=== PATIENT | female | born 1990 | race Two or more races ===

== ENCOUNTER 2018-12-29 22:13 | Emergency (ER) | payer MEDICAID ==
[~2018-12-29] VITALS: Ht 157.5 cm; Wt 130.4 kg
[2018-12-29] MEDS ORDERED: cloNIDine HCL 0.1 MG TAB PO ONE (23:00)
[2018-12-30 01:20] LABS: Albumin 3.7 g/dL (3.4-5.0); BUN/Creatinine Ratio 16.7; Calcium 8.2 mg/dL (8.5-10.1); Potassium 3.3 mmol/L (3.5-5.1)
[2018-12-30 01:23] LABS: Bilirubin, Total 0.6 mg/dL (0.2-1.0); Total Protein 8.2 g/dL (6.4-8.2)
[2018-12-30 01:54] LABS: Basophils # (auto) 0.1 uL; Basophils % (auto) 0.6 % (0.0-2.0); Eosinophils # (auto) 0 uL; Eosinophils % (auto) 0.5 % (0.0-7.0); Hematocrit 41.7 % (36.0-46.0); Lymphocytes # (auto) 2.1 uL; Lymphocytes % (auto) 20.9 % (10.0-50.0); Mean Corpuscular Hemoglobin 28.9 pg (28.0-32.0); Mean Corpuscular Hgb Conc. 33.6 g/dL (32.0-36.0); Mean Corpuscular Volume 86.2 fL (80.0-100.0); Monocytes # (auto) 0.6 uL; Monocytes % (auto) 5.8 % (0.0-12.0); Neutrophils # (auto) 7.3 uL; Neutrophils % (auto) 72.2 % (37.0-80.0); Nucleated Red Blood Cells % 0.1 %; Platelet Count (auto) 277 10^3/uL (140-450); Red Blood Cells 4.84 10^6/uL (4.0-5.20); Red Cell Distribution Width 14.5 % (11.8-14.3); White Blood Cell 10.1 10^3/uL (4.4-10.8)
[2018-12-30] MEDS ORDERED: cloNIDine HCL 0.1 MG TAB PO ONE ×2 (09:00→09:15)
[2018-12-30] MEDS ORDERED: POTASSIUM EFFERVESENT TAB 25 MEQ PO ONE (11:00)
[2018-12-30 11:04] VITALS: BP 152/82
== END 2018-12-30 11:04 | disposition home or self-care (01) ==
LOC: ER 22:18
DX: I10 Essential (primary) hypertension (principal)
CPT/HCPCS: 36415; 70450; 80053; 85025

== ENCOUNTER 2020-08-13 10:45 | Emergency (ER) | payer MEDICAID ==
[~2020-08-13] VITALS: Ht 157.5 cm; Wt 130.2 kg
[2020-08-13] MEDS ORDERED: cloNIDine HCL 0.1 MG TAB PO ONE (11:00)
[2020-08-13 12:37] VITALS: BP 163/90
== END 2020-08-13 12:50 | disposition home or self-care (01) ==
LOC: ER 10:45
DX: H66.93 Otitis media, unspecified, bilateral (principal); I10 Essential (primary) hypertension; E66.01 Morbid (severe) obesity due to excess calories; F17.210 Nicotine dependence, cigarettes, uncomplicated; F12.10 Cannabis abuse, uncomplicated; Z68.43 Body mass index [BMI] 50.0-59.9, adult; Z91.14 Patient's other noncompliance with medication regimen

== ENCOUNTER 2023-10-22 14:04 | Inpatient (IN) | payer MEDICAID ==
[~2023-10-22] VITALS: Ht 157.5 cm; Wt 134.4 kg
[2023-10-22] MEDS: cloNIDine HCL 0.1 MG TAB PO ONE (14:31)
[2023-10-22 14:35] VITALS: PULSE 107; RESP 14; O2SAT 98
[2023-10-22 19:47] LABS: Basophils # (auto) 0.1 10 ^3/uL (0-0.2); Basophils % (auto) 0.9 % (0.0-2.0); Chloride 103 mmol/L (98-107); Eosinophils # (auto) 0 10 ^3/uL (0-0.8); Eosinophils % (auto) 0.3 % (0.0-7.0); Hematocrit 43.8 % (36.0-46.0); Hemoglobin 14.9 g/dL (12.2-16.2); Lymphocytes # (auto) 2.1 10 ^3/uL (0.4-5.4); Lymphocytes % (auto) 18.5 % (10.0-50.0); Mean Corpuscular Hemoglobin 31.5 pg (28.0-32.0); Mean Corpuscular Volume 92.5 fL (80.0-100.0); Monocytes # (auto) 0.7 10 ^3/uL (0-1.3); Neutrophils # (auto) 8.6 10 ^3/uL (1.6-8.6); Neutrophils % (auto) 74.3 % (37.0-80.0); Platelet Count (auto) 299 10^3/uL (140-450); Potassium 3.8 mmol/L (3.5-5.1); Red Blood Cells 4.73 10^6/uL (4.0-5.20); Red Cell Distribution Width 13.5 % (11.8-14.3); Sodium 137 mmol/L (136-145); White Blood Cell 11.6 10^3/uL (4.4-10.8)
[2023-10-22 19:48] LABS: Anion Gap 10 (5-15); Carbon Dioxide 24 mmol/L (20-30)
[2023-10-22 19:49] LABS: Calcium 8.7 mg/dL (8.7-10.4)
[2023-10-22 19:53] LABS: Glucose 90 mg/dL (74-106)
[2023-10-22 19:54] LABS: BUN/Creatinine Ratio 11.6 (10.0-20.0); Blood Urea Nitrogen 8 mg/dL (9-23)
[2023-10-22] MEDS: LABETALOL HCL 20 MG/4 ML VL IV ONE (23:13)
[2023-10-23 07:43] VITALS: PULSE 87; RESP 19; O2SAT 99
[2023-10-23] MEDS ORDERED: HYDROmorphone HCL 2 MG/ML VL/or syr IV PRN (10:15)
[2023-10-23] MEDS ORDERED: ONDANSETRON HCL 4 MG/2 ML VIAL IV PRN (10:15)
[2023-10-23] MEDS ORDERED: DOCUSATE SOD 100 MG CAP PO PRN (10:15)
[2023-10-23] MEDS: LACTATED RINGER'S 1,000 ML IV ONE (10:30)
[2023-10-23] MEDS: amLODIPine BESYLATE 5 MG TAB PO SCH (10:30)
[2023-10-23] MEDS: ACETAMINOPHEN 325 MG TAB PO PRN (11:28)
[2023-10-23] MEDS: LABETALOL HCL 20 MG/4 ML VL IV PRN (11:29)
[2023-10-23] MEDS: SODIUM CHLOR 0.9% PF (SALINE LOCK) 10ML VIAL/SYR IV SCH (14:06)
[2023-10-23 14:10] LABS: Amphetamine Screen, Urine Neg (NEGATIVE); Barbiturate Scree,Urine Neg (NEGATIVE); Benzodiazephine Screen, Urine Neg (NEGATIVE); Cannabinoid Screen, Urine Pos (NEGATIVE); Cocaine Screen, Urine Neg (NEGATIVE); Opiate Scree,Urine Neg (NEGATIVE); Phencyclidine Screen, Urine Neg (NEGATIVE)
[2023-10-23 19:30] VITALS: PULSE 80; RESP 12; O2SAT 96
[2023-10-23] MEDS: HYDROcodone-ACET 5/325MG TAB PO PRN (20:45)
[2023-10-23 22:52] VITALS: BP 219/129; PULSE 89; RESP 19; TEMP 97.8; O2SAT 97
[2023-10-24] VITALS (13 sets, daily range): BP systolic 147–179; BP diastolic 78–106; PULSE 71–91; RESP 16–20; TEMP 98–98.5; O2SAT 95–98
[2023-10-24] MEDS: hydrALAZINE HCL 20 MG/ML VL IV ONE (01:00)
[2023-10-24 06:48] LABS: Basophils # (auto) 0.1 10 ^3/uL (0-0.2); Basophils % (auto) 0.7 % (0.0-2.0); Eosinophils # (auto) 0 10 ^3/uL (0-0.8); Eosinophils % (auto) 0.6 % (0.0-7.0); Hematocrit 39.1 % (36.0-46.0); Hemoglobin 13.3 g/dL (12.2-16.2); Lymphocytes # (auto) 1.7 10 ^3/uL (0.4-5.4); Lymphocytes % (auto) 20.5 % (10.0-50.0); Mean Corpuscular Hemoglobin 31.2 pg (28.0-32.0); Mean Corpuscular Volume 91.9 fL (80.0-100.0); Monocytes # (auto) 0.6 10 ^3/uL (0-1.3); Neutrophils # (auto) 5.9 10 ^3/uL (1.6-8.6); Neutrophils % (auto) 71.2 % (37.0-80.0); Platelet Count (auto) 254 10^3/uL (140-450); Red Blood Cells 4.25 10^6/uL (4.0-5.20); Red Cell Distribution Width 13.4 % (11.8-14.3); White Blood Cell 8.2 10^3/uL (4.4-10.8)
[2023-10-24 06:56] LABS: Alanine Aminotransferase 21 U/L (7-40); Albumin 4.2 g/dL (3.2-4.8); Alkaline Phosphatase 57 U/L (46-116); Anion Gap 7 (5-15); Aspartate Aminotransferase 20 U/L (13-40); BUN/Creatinine Ratio 10.5 (10.0-20.0); Blood Urea Nitrogen 6 mg/dL (9-23); Calcium 8.5 mg/dL (8.7-10.4); Carbon Dioxide 24 mmol/L (20-30); Chloride 106 mmol/L (98-107); Glucose 103 mg/dL (74-106); Potassium 3.1 mmol/L (3.5-5.1); Sodium 137 mmol/L (136-145)
[2023-10-24 06:57] LABS: Bilirubin, Total 0.8 mg/dL (0.2-1.0); Total Protein 7.2 g/dL (5.7-8.2)
[2023-10-24] MEDS: POTASSIUM CHL 20 Meq TABLET PO ONE (08:23)
[2023-10-24] MEDS: ENOXAPARIN SOD 40 MG/0.4 ML SYRINGE SC SCH (09:46)
[2023-10-24] MEDS ORDERED: LISI-275 PO (13:39)
[2023-10-24] MEDS ORDERED: ACET-1882 PO (13:39)
[2023-10-24] MEDS: LISINOPRIL 5 MG TAB PO ONE (16:35)
[2023-10-24 18:11] LABS: Anion Gap 5 (5-15); Carbon Dioxide 26 mmol/L (20-30); Chloride 106 mmol/L (98-107); Potassium 3.7 mmol/L (3.5-5.1); Sodium 137 mmol/L (136-145)
[2023-10-24 18:16] LABS: BUN/Creatinine Ratio 12.7 (10.0-20.0); Blood Urea Nitrogen 9 mg/dL (9-23); Glucose 91 mg/dL (74-106); Magnesium 1.9 mg/dL (1.6-2.6)
[2023-10-24] MEDS: METHOCARBAMOL 500 MG TAB PO SCH (21:26)
[2023-10-25] VITALS (7 sets, daily range): BP systolic 146–181; BP diastolic 85–111; PULSE 73–88; RESP 17–20; TEMP 36.4; O2SAT 94–98
[2023-10-25 05:45] LABS: Basophils # (auto) 0.1 10 ^3/uL (0-0.2); Basophils % (auto) 0.8 % (0.0-2.0); Eosinophils # (auto) 0.1 10 ^3/uL (0-0.8); Eosinophils % (auto) 1.9 % (0.0-7.0); Hematocrit 36.5 % (36.0-46.0); Hemoglobin 12.6 g/dL (12.2-16.2); Lymphocytes # (auto) 2.2 10 ^3/uL (0.4-5.4); Lymphocytes % (auto) 31.3 % (10.0-50.0); Mean Corpuscular Hgb Conc. 34.5 g/dL (32.0-36.0); Mean Corpuscular Volume 92.9 fL (80.0-100.0); Monocytes # (auto) 0.5 10 ^3/uL (0-1.3); Monocytes % (auto) 7.2 % (0.0-12.0); Neutrophils % (auto) 58.8 % (37.0-80.0); Platelet Count (auto) 242 10^3/uL (140-450); Red Blood Cells 3.93 10^6/uL (4.0-5.20); Red Cell Distribution Width 13.3 % (11.8-14.3); White Blood Cell 6.9 10^3/uL (4.4-10.8)
[2023-10-25 06:09] LABS: Alanine Aminotransferase 31 U/L (7-40); Albumin 3.8 g/dL (3.2-4.8); Alkaline Phosphatase 54 U/L (46-116); Anion Gap 6 (5-15); Aspartate Aminotransferase 32 U/L (13-40); BUN/Creatinine Ratio 11.1 (10.0-20.0); Blood Urea Nitrogen 7 mg/dL (9-23); Calcium 8.6 mg/dL (8.7-10.4); Carbon Dioxide 25 mmol/L (20-30); Chloride 106 mmol/L (98-107); Glucose 89 mg/dL (74-106); Potassium 3.3 mmol/L (3.5-5.1); Sodium 137 mmol/L (136-145)
[2023-10-25 06:10] LABS: Bilirubin, Total 0.7 mg/dL (0.2-1.0); Total Protein 6.7 g/dL (5.7-8.2)
[2023-10-25] MEDS: LISINOPRIL 5 MG TAB PO SCH (09:13)
[2023-10-25] MEDS ORDERED: LISI-275 PO (10:44)
[2023-10-25] MEDS: hydrALAZINE HCL 20 MG/ML VL IV PRN (12:00)
[2023-10-25] MEDS ORDERED: LISINOPRIL 20 MG TAB PO SCH (14:00)
[2023-10-25] MEDS ORDERED: amLODIPine BESYLATE 5 MG TAB PO ONE (14:00)
[2023-10-25] MEDS: LISINOPRIL 20 MG TAB PO SCH (14:15)
[2023-10-25] MEDS ORDERED: LISI20TA56 PO (18:07)
[2023-10-26] MEDS ORDERED: amLODIPine BESYLATE 5 MG TAB PO SCH (10:00)
== END 2023-10-25 17:20 | disposition home or self-care (01) | DRG 199 ==
LOC: ER 14:04 → TELE 10-23 10:12 → TELE-CENTR 10-23 22:52
PROVIDERS: ADMIT Internal Medicine Pulmonary Disease; ATTEND Internal Medicine Pulmonary Disease
DX: I16.0 Hypertensive urgency (principal); R16.0 Hepatomegaly, not elsewhere classified; Z68.43 Body mass index [BMI] 50.0-59.9, adult; E66.01 Morbid (severe) obesity due to excess calories; F17.210 Nicotine dependence, cigarettes, uncomplicated; F41.9 Anxiety disorder, unspecified; I10 Essential (primary) hypertension; M47.816 Spondylosis without myelopathy or radiculopathy, lumbar region; M51.36 Other intervertebral disc degeneration, lumbar region; F12.90 Cannabis use, unspecified, uncomplicated; Z82.49 Family history of ischemic heart disease and other diseases of the circulatory system
CPT/HCPCS: 36415; 70450; 71260; 72100; 72125; 73630; 74177; 80048; 80053; 80307; 83735; 85025; 96361; 96374; 96375; 97163; G0378

== ENCOUNTER 2024-08-06 11:58 | Inpatient (IN) | payer MEDICAID ==
[~2024-08-06] VITALS: Ht 157.5 cm; Wt 136.2 kg
[~2024-08-06 11:58] MED LIST: ACET-1882 PO; LISI20TA56 PO
--- NOTE | 2024-08-06 12:12 | ED.PDOC ---
HPI (NEURO) HPI Comments 33 y/o F, with PMHx of HTN and anxiety presents to the ED for CC of left sided weakness. 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 Upon arrival to the ED, patient was found to be tachycardiac and hypertensive with a blood pressure reading of 262/152mmHg. Patient denies recent travel, nausea, vomiting, numbness, or change in gait. No other symptoms or modifying factors present at this time. 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 Hx Family History Family History: Reviewed,noncontributory to illness, Family hx of HTN Social History Smoker: Cigarettes, Less Than 1 Pack/Day Alcohol: Denies ETOH Use Drugs: Marijuana Lives In: Home Constitutional: reports: weakness; denies: chills, diaphoresis, fatigue, fever, malaise, sweats, others EENTM: denies: blurred vision, double vision, ear bleeding, ear discharge, ear drainage, ear pain, ear ringing, eye pain, eye redness, hearing loss, mouth pain, mouth swelling, nasal discharge, nose bleeding, nose congestion, nose pain, photophobia, tearing, throat pain, throat swelling, voice changes, others Respiratory: denies: cough, hemoptysis, orthopnea, SOB at rest, shortness of breath, SOB with excertion, stridor, wheezing, others Cardiovascular: denies: chest pain, dizzy spells, diaphoresis, Dyspnea on exertion, edema, irregular heart beat, left arm pain, lightheadedness, palpitations, PND, syncope, others Gastrointestinal: denies: abdomen distended, abdominal pain, blood streaked bowels, constipated, diarrhea, dysphagia, difficulty swallowing, hematemesis, melena, nausea, poor appetite, poor fluid intake, rectal bleeding, rectal pain, vomiting, others Genitourinary: denies: abnormal vagina bleeding, burning, dyspareunia, dysuria, flank pain, frequency, hematuria, incontinence, pain, , vagina discharge, urgency, others Neurological: reports: left sided weakness; denies: dizziness, fainting, headache, left sided numbness, numbness, paresthesia, pre-existing deficit, right sided numbness, right sided weakness, seizure, speech problems, tingling, tremors, weakness, others Musculoskeletal: denies: back pain, gout, joint pain, joint swelling, muscle pa in, muscle stiffness, neck pain, others Integumetry: denies: bruises, change in color, change in hair/nails, dryness, laceration, lesions, lumps, rash, wounds, others Allergic/Immunocompromised: denies: Difficulty Healing, Frequent Infections, Hives, Itching, others Hematologic/Lymphatic: denies: anemia, blood clots, easy bleeding, easy bruising, swollen glands, others Endocrine: denies: excessive hunger, excessive sweating, excessive thirst, excessive urination, flushing, intolerance to cold, intolerance to heat, unexplained weight gain, unexplained weight loss, others Psychiatric: denies: anxiety, bipolar disorder, depression, hopeless, panic disorder, schizophrenia, sleepless, suicidal, others Physical Exam General Appearance: No Apparent Distress, Normal HEENT: Normal ENT Inspection, Pharynx Normal Neck: Full Range of Motion, Non-Tender, Normal, Normal Inspection Respiratory: Chest Non-Tender, Lungs Clear, No Accessory Muscle Use, No Respiratory Distress, Normal Breath Sounds Cardiovascular: No Edema, No Murmur, No Gallop, Normal Peripheral Pulses, Tachycardia Breast Exam: Deferred Gastrointestinal: No Organomegaly, Non Tender, No Pulsatile Mass, Normal Bowel Sounds, Soft Genitalia: Deferred Pelvic: Deferred Rectal: Deferred Extremities: No calf tenderness, Normal capillary refill, Normal inspection, Normal range of motion, Non-tender, No pedal edema Musculoskeletal : Apperance: Normal Neurologic: Alert, 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 Was a procedure done?: No Differential Diagnosis (SZ) CVA: Talamantes's Palsy, CVA, Electrolyte Imbalance X-Ray, Labs, Meds, VS Vital Signs Date Time Temp Pulse Resp B/P (MAP) Pulse Ox O2 Delivery O2 Flow Rate FiO2 08/06/24 13:02 98.3 112 14 225/169 (187) 95 98.3 08/06/24 12:32 225/169 08/06/24 12:22 112 08/06/24 12:12 101 08/06/24 12:07 98.0 111 18 262/154 (190) 100 98.0 Lab Test 08/06/24 12:34 Range/Units White Blood Count 8.9 4.4-10.8 10^3/uL Red Blood Count 4.88 4.0-5.20 10^6/uL Hemoglobin 15.1 12.2-16.2 g/dL Hematocrit 43.4 36.0-46.0 % Mean Corpuscular Volume 89.1 80.0-100.0 fL Mean Corpuscular Hemoglobin 30.9 28.0-32.0 pg Mean Corpuscular Hemoglobin Concent 34.7 32.0-36.0 g/dL Red Cell Distribution Width 13.8 11.8-14.3 % Platelet Count 244 140-450 10^3/uL Mean Platelet Volume 7.7 6.9-10.8 fL Neutrophils (%) (Auto) 76.8 37.0-80.0 % Lymphocytes (%) (Auto) 15.6 10.0-50.0 % Monocytes (%) (Auto) 5.7 0.0-12.0 % Eosinophils (%) (Auto) 1.1 0.0-7.0 % Basophils (%) (Auto) 0.8 0.0-2.0 % Neutrophils # (Auto) 6.9 1.6-8.6 10 ^3/uL Lymphocytes # (Auto) 1.4 0.4-5.4 10 ^3/uL Monocytes # (Auto) 0.5 0-1.3 10 ^3/uL Eosinophils # (Auto) 0.1 0-0.8 10 ^3/uL Basophils # (Auto) 0.1 0-0.2 10 ^3/uL Nucleated Red Blood Cells 0.1 % Sodium Level 141 136-145 mmol/L Potassium Level 3.4 L 3.5-5.1 mmol/L Chloride Level 103 98-107 mmol/L Carbon Dioxide Level 25 20-31 mmol/L Anion Gap 13 5-15 Blood Urea Nitrogen 10 9-23 mg/dL Creatinine 0.70 0.550-1.02 mg/dL Glomerular Filtration Rate Calc 118 >90 mL/min BUN/Creatinine Ratio 14.3 10.0-20.0 Serum Glucose 103 74-106 mg/dL Calcium Level 9.8 8.7-10.4 mg/dL Troponin I High Sensitivity 70 *H </=34 ng/L Current Medications Medications (Trade) Dose Ordered Sig/Susan Route Start Time Stop Time Status Last Admin Hydralazine HCl (Apresoline Injection) 20 mg ONCE ONCE IV 08/06/24 12:15 08/06/24 12:16 DC 08/06/24 12:32 [place] [address] Ph: [phone] DIAGNOSTIC IMAGING Diagnostic Imaging Report : [id number] Signed PATIENT: GIOVANA HONG SACCT: [id number] UNIT: [id number] : 1990 LOC: ER ROOM / BED: / AGE / SEX: 33 / F ADM STATUS: REG ER SERVICE 1208 ORDERING PHYSICIAN: ELISE MARCUS MD PROCEDURE(s): HWOCT - HEAD WITHOUT CONTRAST REASON: htn ORDER NUMBER(s): [id number], ACCESSION NUMBER(s): [id number] CT HEAD WITHOUT CONTRAST INDICATION: htn EXAM DATE: 08/06/2024 12:33 PM COMPARISON: CT HEAD WITHOUT CONTRAST on DOS: 10/22/23, HEAD WITHOUT CONTRAST on DOS: 12/29/18 RADIATION DOSE: CTDIvol: 58.54 mGy, DLP: 938.32 mGy*cm PROCEDURE: CT scans of the head were obtained from the vertex to the skull base. Sagittal and coronal reconstructions were provided. All CT scans at this medical facility are performed using dose modulation techniques as appropriate to a performed exam including the following: Automated exposure control was utilized; adjustment of the MA and/or KV according to patient size; and use of iterative reconstruction technique. FINDINGS: There is sulcal and ventricular prominence. The brainshows normal morphology and montiel-white matter differentiation, without intracranial hemorrhage, extra-axial fluid collection, mass effect or acute large vessel infarct. The ventricles are normal in size. The basal cisterns are patent. The skull and visible facial bones are intact. The paranasal sinuses, mastoid air cells and middle ear cavities are well-aerated. The soft tissues of the scalp are unremarkable. IMPRESSION: No acute intracranial abnormality. 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 patient also has hypertensive e mergency. Patient presented with hypertension and symptoms concerning for hypertensive emergency. Patient is receiving iv blood pressure medications requiring intensive monitoring. Data: 1. I ordered and reviewed the result of at least 3 labs including a CBC, BMP, and Urinalysis. 2. I independently interpreted the following tests: CT Brain: Which appears benign. EKG which is Normal Sinus RhythmRisk:This patient has a high risk of morbidity due to further diagnostic testing or treatment and may suffer from an acute cardiac disorder. Workup reveals hypertensive emergency and patient should be admitted for further workup. and possible expert consultation. ) Impression: Primary Impression: Hypertensive emergency Additional Impressions: Talamantes's palsy Elevated troponin Disposition: ADMITTED INPATIENT Admit to: Med Surg Condition: Guarded Critical Care Note Critical Care Time?: Yes Critical care comment: Hypertensive emergency Authorized and Performed by: Elise Marcus MD Total critical care time: Approximately 43 minutes Due to a high probability of clinically significant, life threatening deterioration, the patient required my highest level of preparedness to intervene emergently and I personally spent this critical care time directly and personally managing the patient. This critical care time included obtaining a history; examining the patient; pulse oximetry; ordering and review of studies; arranging urgent treatment with development of a management plan; evaluation of patient's response to treatment; frequent reassessment; and, discussions with other providers. This critical care time was performed to assess and manage the high probability of imminent, life-threatening deterioration that could result in multi-organ failure. It was exclusive of separately billable procedures and treating other patients and teaching time. Please see my other sections and the rest of the note for further information on patient assessment and treatment. Stability Stability form required: No Heart Score Heart Score: Heart Score Response (Comments) Value History N/A 0 EKG N/A 0 Age N/A 0 Risk Factors N/A 0 Troponin N/A 0 Total 0 I personally scribed for ELISE MARCUS MD ([email or web address]) on 08/06/24 at 12:11. Electronically submitted by Iram Ag ([email or web address]). I personally scribed for ELISE MARCUS MD ([email or web address]) on 08/06/24 at 13:21. Electronically submitted by Iram Ag ([email or web address]). ELISE MARCUS MD Aug 06, 2024 12:11
[2024-08-06 12:22] VITALS: PULSE 112
--- NOTE | 2024-08-06 12:22 | ECG ---
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
[2024-08-06] MEDS: hydrALAZINE HCL 20 MG/ML VL IV ONE (12:32)
[2024-08-06 12:52] LABS: Basophils # (auto) 0.1 10 ^3/uL (0-0.2); Basophils % (auto) 0.8 % (0.0-2.0); Eosinophils # (auto) 0.1 10 ^3/uL (0-0.8); Eosinophils % (auto) 1.1 % (0.0-7.0); Hematocrit 43.4 % (36.0-46.0); Hemoglobin 15.1 g/dL (12.2-16.2); Lymphocytes # (auto) 1.4 10 ^3/uL (0.4-5.4); Lymphocytes % (auto) 15.6 % (10.0-50.0); Mean Corpuscular Hemoglobin 30.9 pg (28.0-32.0); Mean Corpuscular Hgb Conc. 34.7 g/dL (32.0-36.0); Mean Corpuscular Volume 89.1 fL (80.0-100.0); Monocytes # (auto) 0.5 10 ^3/uL (0-1.3); Monocytes % (auto) 5.7 % (0.0-12.0); Neutrophils # (auto) 6.9 10 ^3/uL (1.6-8.6); Neutrophils % (auto) 76.8 % (37.0-80.0); Nucleated Red Blood Cells % 0.1 %; Platelet Count (auto) 244 10^3/uL (140-450); Red Blood Cells 4.88 10^6/uL (4.0-5.20); Red Cell Distribution Width 13.8 % (11.8-14.3); White Blood Cell 8.9 10^3/uL (4.4-10.8)
[2024-08-06 13:00] LABS: Chloride 103 mmol/L (98-107); Sodium 141 mmol/L (136-145)
[2024-08-06 13:01] LABS: Anion Gap 13 (5-15); Calcium 9.8 mg/dL (8.7-10.4); Carbon Dioxide 25 mmol/L (20-31)
[2024-08-06 13:05] LABS: Potassium 3.4 mmol/L (3.5-5.1)
[2024-08-06 13:06] LABS: BUN/Creatinine Ratio 14.3 (10.0-20.0); Blood Urea Nitrogen 10 mg/dL (9-23); Glucose 103 mg/dL (74-106)
--- NOTE | 2024-08-06 13:06 | DVH ---
CT HEAD WITHOUT CONTRAST INDICATION: htn EXAM DATE: 08/06/2024 12:33 PM COMPARISON: CT HEAD WITHOUT CONTRAST on DOS: 10/22/23, HEAD WITHOUT CONTRAST on DOS: 12/29/18 RADIATION DOSE: CTDIvol: 58.54 mGy, DLP: 938.32 mGy*cm PROCEDURE: CT scans of the head were obtained from the vertex to the skull base. Sagittal and coronal reconstructions were provided. All CT scans at this medical facility are performed using dose modulation techniques as appropriate t o a performed exam including the following: Automated exposure control was utilized; adjustment of th e MA and/or KV according to patient size; and use of iterative reconstruction technique. FINDINGS: There is sulcal and ventricular prominence. The brainshows normal morphology and montiel-whi te matter differentiation, without intracranial hemorrhage, extra-axial fluid collection, mass effect or acute large vessel infarct. The ventricles are normal in size. The basal cisterns are patent. The skull and visible facial bones are intact. The paranasal sinuses, mastoid air cells and middle ear c avities are well-aerated. The soft tissues of the scalp are unremarkable. IMPRESSION: No acute intracranial abnormality.
[2024-08-06] MEDS: ACYCLOVIR SOD 50MG/ML 800 MG in SODIUM CHL 0.9% 250 ML IV ONE (14:07)
[2024-08-06 14:42] LABS: Urine Bacteria FEW /hpf (None Seen); Urine Blood 1+ /uL (Negative); Urine Clarity Turbid (Clear); Urine Color Yellow (Yellow); Urine Mucus FEW (None Seen); Urine Protein, UAD 1+ (Negative); Urine Specific Gravity 1.021 (1.001-1.035); Urine Squamous Epithelial Cell FEW /hpf (<5); Urine Urobilinogen Normal (Negative); Urine WBC 1 /HPF (0-5)
--- NOTE | 2024-08-06 15:20 | DVH ---
CHEST RADIOGRAPH Indication: htn Technique: Single frontal view of the chest was obtained Comparison: None FINDINGS: The cardiac silhouette is unremarkable. The lungs demonstrate no pulmonary airspace consolidation. Th e pulmonary vasculature is prominent. There is no pleural effusion.. There is no pneumothorax. IMPRESSION: 1. Mild pulmonary vascular congestion.
[2024-08-06] MEDS ORDERED: NITROGLYCERIN 0.4 MG SL TAB SL PRN (17:30)
[2024-08-06] MEDS ORDERED: MORPHINE SULFATE 4 MG/ML SYR/VIAL IV PRN (17:30)
--- NOTE | 2024-08-06 17:41 | DVHHPRES ---
History of Present Illness Resident Creating Document: DAVID HALL RESDIENT History of Present Illness This is a 33-year-old morbidly obese patient with past medical history of hypertension, and anxiety came to the hospital due to left-sided facial weakness. Per patient, last night she developed left eye twitching and was associated with watery discharge. Due to foreign body sensation she tried to wash eye with water. Today morning, upon waking from sleep she was feeling left-sided facial numbness, right lower lip puffiness, inability to completely close left eye, and move left side of face. She also reports left eye blurry vision, and gritty sensation. She also reports left-sided neck pain. She denies chest pain, shortness of breath, nausea, vomiting, fever, or any other recent sensory or motor deficits. PMHx: Hypertension, anxiety PSHx: Appendectomy Family history: Father had hypertension and diabetes Social history: Smokes marijuana, denies any other drug use. Lives with father at home. Home medication: Losartan 50 mg daily, nonadherent to the medicine Allergic history: No known allergy Patient seen and examined at the bedside. Patient is noncompliant left-sided facial weakness. Review of Systems Allergies: Coded Allergies: NO KNOWN ALLERGIES (Unverified , 12/29/18) Medications Current Medications Medications Dose Ordered Sig/Susan Route Start Time Stop Time Status Last Admin Dose Admin Nitroglycerin 0.4 mg Q5MINP PRN SL 08/06/24 17:30 Morphine Sulfate 2 mg Q30M PRN IV 08/06/24 17:30 Amlodipine Besylate 10 mg DAILY PO 08/07/24 10:00 UNV Exam Vital Signs Vital Signs Date Time Temp Pulse Resp B/P (MAP) Pulse Ox O2 Delivery O2 Flow Rate FiO2 08/06/24 16:08 111 15 170/90 (116) 08/06/24 13:02 98.3 95 98.3 Exam General Appearance: Alert, Oriented X3, Cooperative, No acute distress HEENT: Atraumatic, PERRLA, EOMI, Mucous membrane moist/pink Respiratory: Clear to auscultation, Normal air movement Cardiovascular: Regular rate, Normal S1, Normal S2, No murmurs, no chest wall tenderness Abdominal: Normal bowel sounds, Soft, No tenderness, No hepatospenomegaly, No masses Extremities: No clubbing, No cyanosis, No edema, Normal pulses, No tenderness/swelling Skin: No rashes, No breakdown, No significant lesion Neuro: Left-sided upper and lower facial weakness, inability to close left eye completely. Touch sensation is intact on the left side. Otherwise grossly normal cranial nerve, with normal bilateral upper and lower limb normal sensory and motor function. Psych/Mental Status: Mental status NL, Mood NL Labs/Xrays Labs Test 08/06/24 15:54 08/06/24 13:50 08/06/24 12:34 Range/Units Troponin I High Sensitivity 55 *H </=34 ng/L Urine Color Yellow Yellow Urine Clarity Turbid H Clear Urine pH 6.0 5.0-9.0 Urine Specific [place] 1.021 1.001-1.035 Urine Protein 1+ H Negative Urine Ketones Negative Negative Urine Blood 1+ H Negative /uL Urine Nitrite Negative Negative Urine Bilirubin Negative Negative Urine Urobilinogen Normal Negative mg/dL Urine Leukocyte Esterase Negative Negative /uL Urine RBC 2 0 - 4 /hpf Urine Microscopic WBC 1 0-5 /HPF Urine Squamous Epithelial Cells Few <5 /hpf Urine Bacteria Few H None Seen /hpf Urine Mucus Few None Seen Urine Glucose Trace Normal mg/dL White Blood Count 8.9 4.4-10.8 10^3/uL Red Blood Count 4.88 4.0-5.20 10^6/uL Hemoglobin 15.1 12.2-16.2 g/dL Hematocrit 43.4 36.0-46.0 % Mean Corpuscular Volume 89.1 80.0-100.0 fL Mean Corpuscular Hemoglobin 30.9 28.0-32.0 pg Mean Corpuscular Hemoglobin Concent 34.7 32.0-36.0 g/dL Red Cell Distribution Width 13.8 11.8-14.3 % Platelet Count 244 140-450 10^3/uL Mean Platelet Volume 7.7 6.9-10.8 fL Neutrophils (%) (Auto) 76.8 37.0-80.0 % Lymphocytes (%) (Auto) 15.6 10.0-50.0 % Monocytes (%) (Auto) 5.7 0.0-12.0 % Eosinophils (%) (Auto) 1.1 0.0-7.0 % Basophils (%) (Auto) 0.8 0.0-2.0 % Neutrophils # (Auto) 6.9 1.6-8.6 10 ^3/uL Lymphocytes # (Auto) 1.4 0.4-5.4 10 ^3/uL Monocytes # (Auto) 0.5 0-1.3 10 ^3/uL Eosinophils # (Auto) 0.1 0-0.8 10 ^3/uL Basophils # (Auto) 0.1 0-0.2 10 ^3/uL Nucleated Red Blood Cells 0.1 % Sodium Level 141 136-145 mmol/L Potassium Level 3.4 L 3.5-5.1 mmol/L Chloride Level 103 98-107 mmol/L Carbon Dioxide Level 25 20-31 mmol/L Anion Gap 13 5-15 Blood Urea Nitrogen 10 9-23 mg/dL Creatinine 0.70 0.550-1.02 mg/dL Glomerular Filtration Rate Calc 118 >90 mL/min BUN/Creatinine Ratio 14.3 10.0-20.0 Serum Glucose 103 74-106 mg/dL Calcium Level 9.8 8.7-10.4 mg/dL Assessment/Plan Assessment/Plan Hypertensive emergency leading to NSTEMI NSTEMI type 2, likely due to above Talamantes's palsy History of hypertension Anxiety Morbid obesity Hypokalemia * EKGs shows normal sinus rhythm with no significant ST or T-wave changes * Chest x-ray shows borderline cardiomegaly with a globular shape * Central tremor is mildly raised, stable * Head CT scan shows no acute intracranial abnormalities Plan/recommendation * IV hydralazine has been given * Losartan 50 mg daily and amlodipine 10 mg daily * Acyclovir 800 mg IV t.i.d. * Prednisone 60 mg daily * Repleted potassium * Check echocardiogram, TSH, and UDS DIET: Cardiac diet DVT PROPHYLAXIS: Lovenox CODE STATUS: Goal of care discussed for more than 18 minutes, full code DISPOSITION: Telemetry Patient's status and plan discussed with the patient. Case discussed with Dr. Bunn. Plan discussed with: Patient, Other (RN) My Orders Orders - DAVID HALL RESDIEUFEMIA Procedure Category Date Status Time Admit ADMIT 08/06/24 Transmitted 17:18 Code Status CODE 08/06/24 Transmitted 17:18 Vital Signs [facility] 08/06/24 In Process 17:18 Review Orders With [facility] 08/06/24 In Process Adm. 17:18 Notify Md Of Changes [facility] 08/06/24 In Process From Base 17:18 Advance Directive [facility] 08/06/24 In Process 17:18 Patient Condition ORDERS 08/06/24 Transmitted 17:18 Allergies [facility] 08/06/24 In Process 17:18 Nitroglycerin [facility] 08/06/24 In Process Sublingual (Ntrostat 17:30 Oxygen By Nasal RT 08/06/24 Transmitted Cannula 17:18 Stat Ekg For Chest [facility] 08/06/24 In Process Pain 17:18 Notify Md Of Changes [facility] 08/06/24 In Process From Base 17:18 Potline Monitor For [facility] 08/06/24 In Process 24 Hours 17:18 Emergency Dysrhythmia [facility] 08/06/24 In Process Protocol 17:18 Rhythm Strips Once [facility] 08/06/24 In Process Every Shift 17:18 Morphine Sulfate [facility] 08/06/24 In Process Injection 17:30 Lipid Panel LAB 08/06/24 Transmitted 17:19 Drug Screen LAB 08/06/24 Transmitted 17:19 Thyroid Stimulating LAB 08/06/24 Transmitted Hormone 17:19 Echo 2d Mode Cardiac US 08/06/24 Transmitted DOP 17:19 Complete Blood Count LAB 08/07/24 Verified 04:00 Basic Metabolic Panel LAB 08/07/24 Verified 04:00 Amlodipine Tablet PHA 08/07/24 Logged (Norvasc Tablet) 10:00 Amlodipine Tablet PHA 08/06/24 Logged (Norvasc Tablet) 17:30 Losartan Tablet PHA 08/06/24 Logged (Cozaar Tablet) 17:30 Losartan Tablet PHA 08/07/24 Transmitted (Cozaar Tablet) 10:00 Acyclovir Ivpb Zovirax PHA 08/06/24 Transmitted 22:00 Prednisone Tablet PHA 08/07/24 Transmitted 10:00 Prednisone Tablet PHA 08/06/24 Transmitted 17:30 Date of Service: Aug 06, 2024 Billing Provider: CINDY BUNN MD Common Visit Codes: [id number] INP/OBS CARE (HIGH) DAVID HALL RESDIENT Aug 06, 2024 17:41 CINDY BUNN MD Aug 08, 2024 11:46
[2024-08-06] MEDS: LOSARTAN POTASSIUM 50 MG TAB PO ONE (17:43)
[2024-08-06] MEDS: predniSONE 20 MG TAB PO ONE (17:44)
[2024-08-06] MEDS: amLODIPine BESYLATE 5 MG TAB PO ONE (17:44)
[2024-08-06] MEDS ORDERED: HYDROcodone-ACET 5/325MG TAB PO PRN (17:45)
[2024-08-06 18:03] LABS: Triglycerides 152 mg/dL (< 150)
[2024-08-06 18:05] LABS: HDL Cholesterol 74 mg/dL (40-59); LDL Cholesterol 137 mg/dL (< 100)
[2024-08-06 18:06] LABS: Cholesterol 226 mg/dL (< 200)
[2024-08-06] MEDS: ENOXAPARIN SOD 40 MG/0.4 ML SYRINGE SC ONE (18:09)
[2024-08-06] MEDS: ACYCLOVIR 400 MG TAB PO SCH (18:13)
[2024-08-06 18:43] LABS: INR 1.01 (0.9-1.15); Partial Thromboplastin Time 27.6 SEC (24.5-34.5); Prothrombin Time 10.7 sec (9.3-11.8)
[2024-08-06 19:55] VITALS: PULSE 106; RESP 18; O2SAT 97
[2024-08-06 20:20] LABS: Cannabinoid Screen, Urine Pos (NEGATIVE)
[2024-08-06 20:22] LABS: Amphetamine Screen, Urine Neg (NEGATIVE); Barbiturate Scree,Urine Neg (NEGATIVE); Benzodiazephine Screen, Urine Neg (NEGATIVE); Cocaine Screen, Urine Neg (NEGATIVE); Opiate Scree,Urine Neg (NEGATIVE); Phencyclidine Screen, Urine Neg (NEGATIVE)
[2024-08-06] MEDS ORDERED: ACYCLOVIR SOD 50MG/ML 800 MG in SODIUM CHL 0.9% 250 ML IV SCH (22:00)
[2024-08-06 22:17] VITALS: PULSE 107; RESP 20; O2SAT 98
[2024-08-06] MEDS: MAGNESIUM SULFATE 1GM/100ML 100 ML IV ONE (23:38)
[2024-08-06] MEDS: ATORVASTATIN 20 MG TAB PO ONE (23:38)
[2024-08-07 05:45] LABS: Basophils # (auto) 0 10 ^3/uL (0-0.2); Basophils % (auto) 0.4 % (0.0-2.0); Eosinophils # (auto) 0 10 ^3/uL (0-0.8); Hematocrit 43.4 % (36.0-46.0); Hemoglobin 14.9 g/dL (12.2-16.2); Lymphocytes % (auto) 9.6 % (10.0-50.0); Mean Corpuscular Hemoglobin 30.8 pg (28.0-32.0); Mean Corpuscular Hgb Conc. 34.3 g/dL (32.0-36.0); Mean Corpuscular Volume 89.9 fL (80.0-100.0); Monocytes # (auto) 0.4 10 ^3/uL (0-1.3); Monocytes % (auto) 3.3 % (0.0-12.0); Neutrophils # (auto) 9.3 10 ^3/uL (1.6-8.6); Neutrophils % (auto) 86.7 % (37.0-80.0); Platelet Count (auto) 283 10^3/uL (140-450); Red Blood Cells 4.82 10^6/uL (4.0-5.20); White Blood Cell 10.7 10^3/uL (4.4-10.8)
[2024-08-07 05:50] LABS: Chloride 101 mmol/L (98-107); Sodium 139 mmol/L (136-145)
[2024-08-07 05:51] LABS: Anion Gap 14 (5-15); Carbon Dioxide 24 mmol/L (20-31)
[2024-08-07 05:52] LABS: Calcium 9.5 mg/dL (8.7-10.4); Potassium 3.2 mmol/L (3.5-5.1)
[2024-08-07 05:57] LABS: BUN/Creatinine Ratio 12.9 (10.0-20.0)
[2024-08-07 05:59] LABS: Blood Urea Nitrogen 8 mg/dL (9-23); Glucose 112 mg/dL (74-106)
[2024-08-07] MEDS: NIFEdipine ER 30 MG TAB PO ONE (06:33)
[2024-08-07] MEDS: hydroCHLOROthiazide 25 MG TAB PO ONE (06:45)
[2024-08-07] MEDS: LOSARTAN POTASSIUM 50 MG TAB PO ONE (06:45)
[2024-08-07 08:09] VITALS: BP 179/109; PULSE 84; RESP 22; TEMP 98.4; O2SAT 92
[2024-08-07] MEDS ORDERED: LOSA-534 PO (08:20)
[2024-08-07] MEDS: predniSONE 20 MG TAB PO SCH (08:57)
[2024-08-07] MEDS: amLODIPine BESYLATE 5 MG TAB PO SCH (08:57)
[2024-08-07] MEDS: LOSARTAN POTASSIUM 50 MG TAB PO SCH (08:57)
[2024-08-07] MEDS: hydroCHLOROthiazide 25 MG TAB PO SCH (08:58)
[2024-08-07] MEDS: ENOXAPARIN SOD 40 MG/0.4 ML SYRINGE SC SCH (08:58)
[2024-08-07] MEDS: POTASSIUM EFFERVESENT TAB 25 MEQ PO ONE (08:59)
[2024-08-07] MEDS ORDERED: LOSARTAN POTASSIUM 50 MG TAB PO SCH (10:00)
[2024-08-07] MEDS: LABETALOL HCL 20 MG/4 ML VL IV ONE (10:30)
[2024-08-07 13:00] VITALS: BP 143/90; PULSE 86; RESP 18; TEMP 98.2; O2SAT 95
[2024-08-07 17:02] VITALS: BP 148/95; PULSE 109; RESP 18; TEMP 98.1; O2SAT 97
--- NOTE | 2024-08-07 17:42 | DVHSR ---
APPROVED REPORT EXAM: Two-dimensional and M-mode echocardiogram with Doppler and color Doppler. Blood Pressure: 184/115 mmHg INDICATION HTN emergency RISK FACTORS Obesity: Height: 5'2", Weight: 300 DIMENSIONS LVDd4.6 (3.8-5.7cm)LA (2D)4.0 (1.9-4.0cm)Aortic Root3.0 (2.0-3.7cm) LVDs3.0 (2.5-4.0cm)LA (MM) (1.9-4.0cm)Aortic Cusp Exc2.1 (1.5-2.0cm) EF (%) 60.0 (55-70%)Rt. Atrium3.6 (1.9-4.0cm)Asc. Aorta cm IVSd1.5 (0.7-1.1cm)RV (D) (1.8-2.4cm) PWd1.6 (0.7-1.1cm) Mitral Valve MitralMitral Stenosis E wave0.84m/sMV Mean GR.mmHg A wave0.79m/sMV Peak GR.mmHg E/A ratio1.12D MVAcm2 DECEL [id number] 1/2 Timems Aortic Valve Aortic ValveAortic Stenosis V11.29m/Muriel Mean GR.7mmHg V21.77m/Muriel Peak GR.13mmHg LVOT Diameter2.1 (1.8-2.4cm)Doppler AVA2.52cm2 Pulmonic Valve V21.08m/s Other Information Technically limited study due to body habitus. Conclusion lvef 60% moderate LVH grade 1 diastolic dysfunction normal rv function no severe valve abnormaliteis noted
--- NOTE | 2024-08-07 17:53 | DVHPNRES ---
Progress Note Date Seen: Aug 07, 2024 Resident Creating Document: DAVID HALL DANNY Has the PT tested + for MRSA If YES, has PT been informed?: No Medical Necessity Reason Pt with a Central, PICC or Fol: No Subjective Review of Systems Patient seen and examined at bedside. Patient is feeling better since admission but still complaining of left-sided facial numbness. Patient reports: No new complaints, Feels better Changes from previous H/P or p: Changes Objective vital signs Vital Sign Date Time Temp Pulse Resp B/P (MAP) Pulse Ox O2 Delivery O2 Flow Rate FiO2 08/07/24 17:02 98.1 109 18 148/95 (112) 97 98.1 08/06/24 19:55 Room Air* 0 21 medications Current Medications Medications Dose Ordered Sig/Susan Route Start Time Stop Time Status Last Admin Dose Admin Amlodipine Besylate 10 mg DAILY PO 08/07/24 10:00 08/07/24 08:57 10 MG Prednisone 60 mg DAILY PO 08/07/24 10:00 08/07/24 08:57 60 MG Enoxaparin Sodium 40 mg DAILY SC 08/07/24 10:00 08/07/24 08:58 40 MG Acyclovir 400 mg 5XD PO 08/06/24 18:00 08/07/24 14:27 400 MG Atorvastatin Calcium 80 mg HS PO 08/07/24 22:00 Losartan Potassium 100 mg DAILY PO 08/07/24 10:00 08/07/24 08:57 100 MG Hydrochlorothiazide 25 mg DAILY PO 08/07/24 10:00 08/07/24 08:58 25 MG Examination General Appearance: Alert, Oriented X3, Cooperative, No acute distress HEENT: Atraumatic, PERRLA, EOMI, Mucous membrane moist/pink Respiratory: Clear to auscultation, Normal air movement Cardiovascular: Regular rate, Normal S1, Normal S2, No murmurs, no chest wall tenderness Abdominal: Normal bowel sounds, Soft, No tenderness, No hepatospenomegaly, No masses Extremities: No clubbing, No cyanosis, No edema, Normal pulses, No tenderness/swelling Skin: No rashes, No breakdown, No significant lesion Neuro: Left-sided upper and lower facial weakness, inability to close left eye completely. Touch sensation is intact on the left side. Otherwise grossly normal cranial nerve, with normal bilateral upper and lower limb normal sensory and motor function. Psych/Mental Status: Mental status NL, Mood NL laboratory and microbiology Laboratory Tests 08/07/24 04:16 Test 08/07/24 04:16 Range/Units Serum Glucose 112 H 74-106 mg/dL Labs and/or images reviewed: Labs reviewed by me, Image(s) reviewed by me Problem List/Assessment/Plan Problem List/Assessment/Plan Hypertensive emergency leading to NSTEMI NSTEMI type 2, likely due to above Talamantes's palsy History of hypertension Anxiety Morbid obesity Hypokalemia Cannabinoids use disorder * EKGs shows normal sinus rhythm with no significant ST or T-wave changes * Chest x-ray shows borderline cardiomegaly with a globular shape * Central tremor is mildly raised, stable * Head CT scan shows no acute intracranial abnormalities * Echo shows, grade 1 diastolic dysfunction with LVEF 60%, moderate LVH Plan/recommendation * IV hydralazine has been given * Losartan 100mg daily and amlodipine 10 mg daily and hydrochlorothiazide 25 mg daily * Acyclovir 400 mg 5 times a day * Prednisone 60 mg daily * Repleted potassium DIET: Cardiac diet DVT PROPHYLAXIS: Lovenox CODE STATUS: Goal of care discussed for more than 18 minutes, full code DISPOSITION: Telemetry Patient's status and plan discussed with the patient. Case discussed with Dr. Bunn. Plan discussed with: Patient, Other (RN) My Orders My Orders Orders - DAVID HALL Procedure Category Date Status Time Acyclovir Tablet PHA 08/06/24 In Process (Zovirax Tablet) 18:00 Cardiac DIET 08/07/24 Transmitted Diet-2gna,Lofat,Lochol Breakfast Atorvastatin (Lipitor) PHA 08/07/24 In Process 22:00 Renin Activity And LAB 08/06/24 In Process Aldosterone 22:58 Losartan Tablet PHA 08/07/24 In Process (Cozaar Tablet) 10:00 Hydrochlorothiazide PHA 08/07/24 In Process Tablet (Hydrochlorot 10:00 Basic Metabolic Panel LAB 08/08/24 Verified 04:00 Complete Blood Count LAB 08/08/24 Verified 04:00 Date of Service: Aug 07, 2024 Billing Provider: CINDY BUNN MD Common Visit Codes: [id number] INP/OBS CARE(HIGH) DAVID HALL RESDIENT Aug 07, 2024 17:53 CNIDY BUNN MD Aug 08, 2024 11:58
[2024-08-07 21:30] VITALS: BP 143/86; PULSE 87; RESP 17; TEMP 96.3; O2SAT 97
[2024-08-07] MEDS: ATORVASTATIN 20 MG TAB PO SCH (22:59)
[2024-08-08] VITALS (7 sets, daily range): BP systolic 121–139; BP diastolic 77–100; PULSE 79–122; RESP 16–84; TEMP 96.3–98.3; O2SAT 95–97
[2024-08-08 06:56] LABS: Basophils # (auto) 0 10 ^3/uL (0-0.2); Basophils % (auto) 0.2 % (0.0-2.0); Eosinophils # (auto) 0 10 ^3/uL (0-0.8); Eosinophils % (auto) 0.1 % (0.0-7.0); Hematocrit 39.5 % (36.0-46.0); Hemoglobin 13.3 g/dL (12.2-16.2); Lymphocytes # (auto) 1.9 10 ^3/uL (0.4-5.4); Lymphocytes % (auto) 13.8 % (10.0-50.0); Mean Corpuscular Hemoglobin 30.5 pg (28.0-32.0); Mean Corpuscular Hgb Conc. 33.7 g/dL (32.0-36.0); Mean Corpuscular Volume 90.6 fL (80.0-100.0); Monocytes # (auto) 0.9 10 ^3/uL (0-1.3); Monocytes % (auto) 6.7 % (0.0-12.0); Neutrophils # (auto) 10.8 10 ^3/uL (1.6-8.6); Neutrophils % (auto) 79.2 % (37.0-80.0); Platelet Count (auto) 269 10^3/uL (140-450); Red Blood Cells 4.36 10^6/uL (4.0-5.20); Red Cell Distribution Width 14.2 % (11.8-14.3); White Blood Cell 13.7 10^3/uL (4.4-10.8)
[2024-08-08 07:03] LABS: Calcium 8.9 mg/dL (8.7-10.4); Chloride 101 mmol/L (98-107); Sodium 139 mmol/L (136-145)
[2024-08-08 07:04] LABS: Potassium 2.8 mmol/L (3.5-5.1)
[2024-08-08 07:09] LABS: BUN/Creatinine Ratio 17.2 (10.0-20.0); Blood Urea Nitrogen 16 mg/dL (9-23); Glucose 101 mg/dL (74-106)
[2024-08-08 07:48] LABS: Anion Gap 12 (5-15); Carbon Dioxide 26 mmol/L (20-31)
[2024-08-08] MEDS ORDERED: HYDR25TA5 PO (17:53)
[2024-08-08] MEDS ORDERED: ACYC1TAB2 PO (17:53)
[2024-08-08] MEDS ORDERED: PRED20TA2 PO (17:53)
[2024-08-08] MEDS ORDERED: AML5T PO (17:53)
--- NOTE | 2024-08-08 19:30 | DVHDSRES ---
Discharge Summary Date of Admission Resident Creating Document: DAVID HALL RESDIENT Aug 06, 2024 at 17:18 Date of Discharge: Aug 08, 2024 Admitting Diagnosis Talamantes's palsy Labs/Diagnostic Data: Laboratory Results Test 08/08/24 04:49 08/06/24 23:20 08/06/24 17:58 08/06/24 15:54 White Blood Count 13.7 10^3/uL (4.4-10.8) Red Blood Count 4.36 10^6/uL (4.0-5.20) Hemoglobin 13.3 g/dL (12.2-16.2) Hematocrit 39.5 % (36.0-46.0) Mean Corpuscular Volume 90.6 fL (80.0-100.0) Mean Corpuscular Hemoglobin 30.5 pg (28.0-32.0) Mean Corpuscular Hemoglobin Concent 33.7 g/dL (32.0-36.0) Red Cell Distribution Width 14.2 % (11.8-14.3) Platelet Count 269 10^3/uL (140-450) Mean Platelet Volume 8.2 fL (6.9-10.8) Neutrophils (%) (Auto) 79.2 % (37.0-80.0) Lymphocytes (%) (Auto) 13.8 % (10.0-50.0) Monocytes (%) (Auto) 6.7 % (0.0-12.0) Eosinophils (%) (Auto) 0.1 % (0.0-7.0) Basophils (%) (Auto) 0.2 % (0.0-2.0) Neutrophils # (Auto) 10.8 10 ^3/uL (1.6-8.6) Lymphocytes # (Auto) 1.9 10 ^3/uL (0.4-5.4) Monocytes # (Auto) 0.9 10 ^3/uL (0-1.3) Eosinophils # (Auto) 0 10 ^3/uL (0-0.8) Basophils # (Auto) 0 10 ^3/uL (0-0.2) Nucleated Red Blood Cells 0.0 % Sodium Level 139 mmol/L (136-145) Potassium Level 2.8 mmol/L (3.5-5.1) Chloride Level 101 mmol/L (98-107) Carbon Dioxide Level 26 mmol/L (20-31) Anion Gap 12 (5-15) Blood Urea Nitrogen 16 mg/dL (9-23) Creatinine 0.93 mg/dL (0.550-1.02) Glomerular Filtration Rate Calc 84 mL/min (>90) BUN/Creatinine Ratio 17.2 (10.0-20.0) Serum Glucose 101 mg/dL (74-106) Calcium Level 8.9 mg/dL (8.7-10.4) B-Type Natriuretic Peptide 56.68 pg/mL (0-100) Prothrombin Time 10.7 sec (9.3-11.8) Prothrombin Time INR 1.01 (0.9-1.15) Activated Partial Thromboplast Time 27.6 SEC (24.5-34.5) Troponin I High Sensitivity 55 ng/L (</=34) Test 08/06/24 13:50 08/06/24 12:34 Urine Color Yellow (Yellow) Urine Clarity Turbid (Clear) Urine pH 6.0 (5.0-9.0) Urine Specific [place] 1.021 (1.001-1.035) Urine Protein 1+ (Negative) Urine Ketones Negative (Negative) Urine Blood 1+ /uL (Negative) Urine Nitrite Negative (Negative) Urine Bilirubin Negative (Negative) Urine Urobilinogen Normal mg/dL (Negative) Urine Leukocyte Esterase Negative /uL (Negative) Urine RBC 2 /hpf (0 - 4) Urine Microscopic WBC 1 /HPF (0-5) Urine Squamous Epithelial Cells Few /hpf (<5) Urine Bacteria Few /hpf (None Seen) Urine Mucus Few (None Seen) Urine Glucose Trace mg/dL (Normal) Urine Opiates Screen Neg (NEGATIVE) Urine Fentanyl Screen Neg (NEGATIVE) Urine Barbiturates Screen Neg (NEGATIVE) Urine Phencyclidine Screen Neg (NEGATIVE) Urine Amphetamines Screen Neg (NEGATIVE) Urine Benzodiazepines Screen Neg (NEGATIVE) Urine Cocaine Screen Neg (NEGATIVE) Urine Cannabinoids Screen Pos (NEGATIVE) Magnesium Level 1.8 mg/dL (1.6-2.6) Triglycerides Level 152 mg/dL (< 150) Cholesterol Level 226 mg/dL (< 200) LDL Cholesterol 137 mg/dL (< 100) HDL Cholesterol 74 mg/dL (40-59) Thyroid Stimulating Hormone (TSH) 1.15 uIU/mL (0.55-4.78) Other Laboratory Tests 08/08/24 04:49 Brief Hx & Hospital Course: This is a 33-year-old morbidly obese patient with past medical history of hypertension, and anxiety came to the hospital due to left-sided facial weakness. Per patient, last night she developed left eye twitching and was associated with watery discharge. Due to foreign body sensation she tried to wash eye with water. Today morning, upon waking from sleep she was feeling left-sided facial numbness, right lower lip puffiness, inability to completely close left eye, and move left side of face. She also reports left eye blurry vision, and gritty sensation. She also reports left-sided neck pain. She denies chest pain, shortness of breath, nausea, vomiting, fever, or any other recent sensory or motor deficits. PMHx: Hypertension, anxiety PSHx: Appendectomy Family history: Father had hypertension and diabetes Social history: Smokes marijuana, denies any other drug use. Lives with father at home. Home medication: Losartan 50 mg daily, nonadherent to the medicine Allergic history: No known allergy Hospital course: Patient was admitted for hypertensive emergency leading to NSTEMI type 2 and Talamantes's palsy. On physical examination, left-sided upper and lower facial weakness, inability to close left eye completely. Touch sensation is intact on the left side. Otherwise grossly normal cranial nerve, with normal bilateral upper and lower limb normal sensory and motor function. EKGs shows normal sinus rhythm with no significant ST or T-wave changes, Head CT scan showed no acute intracranial abnormalities and Echo showed, grade 1 diastolic dysfunction with LVEF 60%, moderate LVH. The patient was given IV hydralazine, losartan 100 mg daily, amlodipine 10 mg day and hydrochlorothiazide 25 mg daily for hypertension. For Talamantes's palsy, the patient was started on prednisolone 60 mg daily, acyclovir 400 mg daily for 5 days and patient was educated for facial physiotherapy. During hospital admission electrolyte abnormalities including hypokalemia was repleted. On 08/08/2023, the patient was feeling better since admission. Discharge plan discussed with the patient the patient discharged home. Discharge plan: Follow up with the PCP within 1 week of the discharge and physiotherapy for Talamantes's palsy Tablet losartan 50 mg daily Tablet amlodipine 10 mg daily Tablet hydrochlorothiazide 25 mg daily Tablet prednisone 60 mg daily for 3 days The acyclovir 400 mg 5 times and therefore 7 days Condition at Discharge: Good Final Diagnosis/Problems List Hypertensive emergency leading to NSTEMI NSTEMI type 2, likely due to above Talamantes's palsy History of hypertension Anxiety Morbid obesity Hypokalemia Cannabinoids use disorder Discharge Disposition: Home Discharge Instruct/Medications Diet: Cardiac 2g Na,low cholest Activity: Bed rest Follow Up/Referral: Follow up with the PCP within 1 week of the ratio, and physiotherapy for Talamantes's palsy. Medications: Tablet losartan 50 mg daily Tablet amlodipine 10 mg daily Tablet hydrochlorothiazide 25 mg daily Tablet prednisone 60 mg daily for 3 days The acyclovir 400 mg 5 times and therefore 7 days Discharge Statement: "Patient was advised to return to the ER or call 911 if any headaches, dizziness, shortness of breath, chest pain, abdominal pain, bleeding, fevers, or worsening of medical condition. Patient was counseled about treatment plan, medications, possible side effects, patientverbalized understanding. All questions were answered to the best of my ability. This discharge took greater then 30 minutes in planning, reviewing documentation, counseling the patient, and discussing with other team members." ASSESSMENT ASSESSMENT Assessment Talamantes's palsy Hypertensive emergency Date of Service: Aug 08, 2024 Billing Provider: CINDY BUNN MD Common Visit Codes: [id number] DISCH DAY >30min DAVID HALL RESDIENT Aug 08, 2024 19:30 CINDY BUNN MD Aug 13, 2024 21:33
--- NOTE | 2024-08-09 06:29 | DVH ---
INDICATION: Hypertension TECHNIQUE: Multiple real-time sonographic images of the kidneys and bladder were obtained. Duplex Doppler evaluation including color Doppler and spectral/pulsed waveform analysis of the bilate ral renal arteries was performed. COMPARISON: None FINDINGS: The right kidney measures 10.1 cm in length. The right renal echogenicity, contour and cortical thick ness are within normal limits. No hydronephrosis or large masses/calculi are seen. The left kidney measures 11.0 cm in length. The left renal echogenicity, contour, and cortical thickn ess are within normal limits. No hydronephrosis or large masses/calculi are seen. Aorta peak systolic velocity, 20.1 cm/s Right renal artery peak systolic velocity, 70 cm/s (< 180 cm/s = normal). Left renal artery peak systolic velocity 43 cm/s (< 180 cm/s = normal). Right RAR : 3.5 (< 3.5, normal) Left RAR 2.1 (< 3.5, normal) Right RI: 0.6 (< 0.75, normal) Left RI: 0.6 (< 0.75, normal) IMPRESSION: Nonspecific elevation of the right renal artery to aorta ratio. This may be related to low peak syst olic velocity in the aorta. Otherwise, no findings to suggest renal artery stenosis. *Debbi Shannon [employer] in Noninvasive Vascular Diagnosis 2001
== END 2024-08-08 19:14 | disposition home or self-care (01) | DRG 199 ==
LOC: ER 11:58 → OVERFLOW 17:18 → TELE-WESTW 08-07 22:27
PROVIDERS: ADMIT Student in an Organized Health Care Education/Training Program; ATTEND Internal Medicine
DX: I16.1 Hypertensive emergency (principal); I21.A1 Myocardial infarction type 2; G51.0 Bell's palsy; E78.5 Hyperlipidemia, unspecified; I10 Essential (primary) hypertension; F41.9 Anxiety disorder, unspecified; E87.6 Hypokalemia; E66.01 Morbid (severe) obesity due to excess calories; Z68.43 Body mass index [BMI] 50.0-59.9, adult; Z90.49 Acquired absence of other specified parts of digestive tract; Z82.49 Family history of ischemic heart disease and other diseases of the circulatory system; Z88.3 Allergy status to other anti-infective agents
CPT/HCPCS: 36415; 70450; 71045; 80048; 80061; 80307; 81001; 82088; 83735; 83880; 84244; 84443; 84484; 85025; 85610; 85730; 93005; 93306; 93975; 96365; 96375; 99291; G0378